=== PATIENT | female | born 1975 | race Hispanic/Latino ===

== ENCOUNTER 2024-08-26 21:52 | Inpatient (IN) ==
[2024-08-26] MEDS ORDERED: IOPAMIDOL 100 ML BOTTLE IV ONE (21:53)
[2024-08-26] MEDS: HYDROmorphone 0.5 MG/0.5 ML SYRINGE IV PRN (22:31)
[2024-08-26] MEDS: ONDANSETRON 4 MG/2 ML VIAL IV ONE (22:32)
[2024-08-26 22:37] LABS: Basophils # (Auto) 0.04 K/mcL (0.00-0.30); Basophils % (Auto) 0.2 % (0.0-2.0); Eosinophils # (Auto) 0.23 K/mcL (0.00-0.70); Eosinophils % (Auto) 1.4 % (0.0-7.0); Hemoglobin 14.3 g/dL (11.2-15.7); Lymphocytes # (Auto) 3.88 K/mcL (1.50-4.80); Lymphocytes % (Auto) 23.3 % (15.5-49.0); Mean Cell Volume 94.2 fL (80.0-100.0); Mean Corpuscular HGB Conc 32.5 g/dL (31.0-36.0); Mean Platelet Volume 9.4 fL (8.8-12.5); Monocytes # (Auto) 0.92 K/mcL (0.10-0.90); Monocytes % (Auto) 5.5 % (1.0-12.0); Neutrophils % (Auto) 68.1 % (38.0-78.0); Platelet Count 384 K/mcL (140-440); RBC 4.67 M/mcL (3.59-5.38); Red Cell Distribution Width 13.2 % (11.5-14.5); WBC 16.7 K/mcL (4.5-11.0)
[2024-08-26 23:06] LABS: ALT/SGPT 100 U/L (<40); AST/SGOT 83 U/L (<32); Albumin 4.5 gm/dL (3.2-5.2); Albumin/Globulin Ratio 1.8 (1.0-2.3); Alkaline Phosphatase 143 U/L (39-117); Bilirubin,Total 0.2 mg/dL (0.1-1.0); Blood Urea Nitrogen 23 mg/dL (6-20); Calcium 10.1 mg/dL (8.6-10.4); Carbon Dioxide 23 mmol/L (22-30); Chloride 100 mmol/L (96-108); Globulin 2.5 gm/dL (2.2-3.7); Glomerular Filtration Rate 108; Glucose 148 mg/dL (70-105); Potassium 3.9 mmol/L (3.3-5.1); Sodium 139 mmol/L (133-145)
[2024-08-27] MEDS: ONDANSETRON 4 MG/2 ML VIAL IV ONE (00:31)
[2024-08-27] MEDS ORDERED: PYRIDOSTIGMINE BROMIDE 10 MG/2 ML AMPUL IV SCH (01:00)
[2024-08-27] MEDS: 0.9 % SODIUM CHLORIDE 1,000 ML IV SCH (01:32)
[2024-08-27] MEDS: METOCLOPRAMIDE 10 MG/2 ML VIAL IV SCH (01:40)
[2024-08-27] MEDS: METOCLOPRAMIDE 10 MG/2 ML VIAL ONE (01:41)
[2024-08-27] MEDS: HYDROmorphone 1 MG/ML SYRINGE IV PRN (03:15)
[2024-08-27] MEDS: 0.9 % SODIUM CHLORIDE 10 ML SYRINGE IV SCH (05:49)
[2024-08-27] MEDS ORDERED: METOPROLOL TARTRATE 5 MG/5 ML VIAL IV PRN (12:27)
[2024-08-27] MEDS: ONDANSETRON 4 MG/2 ML VIAL IV PRN (12:30)
[2024-08-27 12:59] LABS: Basophils # (Auto) 0.03 K/mcL (0.00-0.30); Basophils % (Auto) 0.2 % (0.0-2.0); Eosinophils # (Auto) 0.02 K/mcL (0.00-0.70); Eosinophils % (Auto) 0.2 % (0.0-7.0); Hematocrit 40.7 % (34.1-44.9); Lymphocytes # (Auto) 1.61 K/mcL (1.50-4.80); Lymphocytes % (Auto) 12.4 % (15.5-49.0); Mean Cell Volume 95.1 fL (80.0-100.0); Mean Corpuscular HGB Conc 31.9 g/dL (31.0-36.0); Mean Platelet Volume 9.2 fL (8.8-12.5); Monocytes # (Auto) 0.56 K/mcL (0.10-0.90); Monocytes % (Auto) 4.3 % (1.0-12.0); Neutrophils % (Auto) 81.2 % (38.0-78.0); Platelet Count 328 K/mcL (140-440); RBC 4.28 M/mcL (3.59-5.38); Red Cell Distribution Width 13.6 % (11.5-14.5)
[2024-08-27 13:51] LABS: Digoxin 0.8 ng/mL
[2024-08-27] MEDS ORDERED: DIATRIZOATE MEGLU/DIATRIZO SOD 120ML BOTTLE PO ONE (15:06)
[2024-08-27] MEDS: Ipratropium-Albuterol [Combivent Respimat] 20-100 INH SCH (15:37)
[2024-08-27] MEDS: BUDESONIDE GLYCOPYR FORMOTEROL INH SCH (20:14)
[2024-08-27] MEDS: IVABRADINE 5 MG PO SCH (20:14)
[2024-08-27] MEDS: FUROSEMIDE 20 MG TABLET PO PRN (22:17)
[2024-08-28 07:11] LABS: Basophils # (Auto) 0.04 K/mcL (0.00-0.30); Basophils % (Auto) 0.4 % (0.0-2.0); Eosinophils # (Auto) 0.18 K/mcL (0.00-0.70); Eosinophils % (Auto) 1.7 % (0.0-7.0); Hematocrit 38.6 % (34.1-44.9); Hemoglobin 12.2 g/dL (11.2-15.7); Lymphocytes # (Auto) 1.62 K/mcL (1.50-4.80); Lymphocytes % (Auto) 15.1 % (15.5-49.0); Mean Cell Volume 95.1 fL (80.0-100.0); Mean Corpuscular HGB Conc 31.6 g/dL (31.0-36.0); Mean Platelet Volume 8.9 fL (8.8-12.5); Monocytes # (Auto) 0.74 K/mcL (0.10-0.90); Monocytes % (Auto) 6.9 % (1.0-12.0); Platelet Count 285 K/mcL (140-440); RBC 4.06 M/mcL (3.59-5.38); Red Cell Distribution Width 13.4 % (11.5-14.5); WBC 10.7 K/mcL (4.5-11.0)
[2024-08-28 07:32] LABS: ALT/SGPT 123 U/L (<40); AST/SGOT 82 U/L (<32); Albumin 4.1 gm/dL (3.2-5.2); Alkaline Phosphatase 98 U/L (39-117); Bilirubin,Direct 0.2 mg/dL (<0.3); Bilirubin,Total 0.4 mg/dL (0.1-1.0); Blood Urea Nitrogen 12 mg/dL (6-20); Calcium 8.8 mg/dL (8.6-10.4); Carbon Dioxide 30 mmol/L (22-30); Chloride 101 mmol/L (96-108); Globulin 2.1 gm/dL (2.2-3.7); Glomerular Filtration Rate 115; Glucose 143 mg/dL (70-105); Lactate Dehydrogenase 193 U/L (135-225); Phosphorous 3.1 mg/dL (2.5-4.5); Potassium 3.3 mmol/L (3.3-5.1); Sodium 143 mmol/L (133-145); Triglycerides 246 mg/dL (<150); Uric Acid 5.2 mg/dL (2.5-8.0)
[2024-08-28] MEDS: DIGOXIN 125 MCG TABLET PO SCH (08:11)
[2024-08-28] MEDS ORDERED: LINACLOTIDE 290 MCG PO SCH (09:00)
[2024-08-28] MEDS: SODIUM CHLORIDE 154 MEQ in WATER FOR INJECTION,STERILE 961.5 ML IV SCH (13:07)
[2024-08-28] MEDS: PYRIDOSTIGMINE 60 MG TABLET PO SCH (13:16)
[2024-08-28] MEDS: diphenhydrAMINE 25 MG CAPSULE PO PRN (18:51)
[2024-08-28] MEDS ORDERED: LORazepam 1 MG TABLET PO PRN (20:20)
[2024-08-28] MEDS: CETIRIZINE 10 MG TABLET PO SCH (21:34)
[2024-08-28] MEDS: ZOLPIDEM 5 MG TABLET PO PRN (21:34)
[2024-08-28] MEDS: METHOCARBAMOL 750 MG TABLET PO PRN (21:34)
[2024-08-28] MEDS: FAMOTIDINE 20 MG TABLET PO SCH (21:34)
[2024-08-29] MEDS: LATANOPROST OPHTH DROPS 2.5ML BOTTLE OU SCH (09:21)
== END 2024-08-29 15:43 | disposition home or self-care (01) | DRG 389 ==
LOC: ED 21:52 → MEDSUR 08-27 02:28
PROVIDERS: ADMIT Family Medicine Adult Medicine; ATTEND Family Medicine Adult Medicine